=== PATIENT | male | born 1930 | race American Indian/Alaskan Native ===

== ENCOUNTER 2017-02-04 01:24 | Emergency (ER) | payer MEDICARE ==
[2017-02-04 01:41] VITALS: BP 157/88
== END 2017-02-04 05:57 | disposition left against medical advice (07) ==
LOC: ED 01:24
DX: M79.652 Pain in left thigh (principal); M54.5 Low back pain; M19.90 Unspecified osteoarthritis, unspecified site; Z79.82 Long term (current) use of aspirin; Z53.21 Procedure and treatment not carried out due to patient leaving prior to being seen by health care provider